=== PATIENT | female | born 1975 | race Hispanic/Latino ===

== ENCOUNTER 2018-04-26 10:57 | Emergency (ER) | payer SELFPAY ==
[2018-04-26 11:01] VITALS: BP 110/73; PULSE 70; RESP 14; TEMP 36.3; O2SAT 100
[2018-04-26 11:37] LABS: Amorphous Sediment Urine 1+; Bacteria Urine Few (2-10); Culture Indicated Urine Specimen Cultured; RBC Urine 0-1/HPF (0-5/HPF); Squamous Epithelial Cell Urine 5-10 /HPF; WBC Urine 1-5/HPF (0-5/HPF)
--- NOTE | 2018-04-26 12:03 | ED.FEMALEGU ---
HPI - Female Genitourinary <Kaelyn Perez PA-C - Last Filed: 04/26/18 21:18> General Chief complaint: Urogenital-Female Stated complaint: PAINFUL URINATION Time Seen by Provider: 04/26/18 12:05 Source: patient Mode of arrival: ambulatory Limitations: no limitations History of Present Illness HPI Narrative: This healthy 43-year-old complains of increased urinary frequency and urgency for about a week. She states that she has had some weight bumps in the vaginal area and this concerns her. She states that the skin can burn when she urinates and also itchy, but denies keyana dysuria. She denies any new vaginal discharge. She has not had intercourse for 3 months and does not think they are STD concerns. She denies any possibility of . She denies any fever. She denies any nausea, vomiting, or new back pain or other new concerns on systems review. Related Data Previous Rx's Medication Instructions Recorded nitrofurantoin monohyd/m-cryst 100 mg PO BID 5 Days #10 cap 04/26/18 [Macrobid] Allergies Allergy/AdvReac Type Severity Reaction Status Date / Time pork derived (porcine) Allergy Unknown Verified 04/26/18 11:03 [PORK DERIVED (PORCINE)] Review of Systems <Kaelyn Perez PA-C - Last Filed: 04/26/18 21:18> Review of Systems All systems reviewed & are unremarkable except as noted in HPI and below Exam <Kaelyn Perez PA-C - Last Filed: 04/26/18 21:18> Narrative Exam Narrative: GENERAL APPEARANCE: Patient sitting comfortably, in no distress. LUNGS: Clear to auscultation bilaterally. HEART: Rate and rhythm regular without murmur, normal S1 and S2, no S3 or S4. ABDOMEN: Soft, NT aside from minimal suprapubic tenderness, ND, +BS x 4 quadrants, no CVAT. : Normal external genitalia. There is 1 tiny white papule on the right labia minora, no vesicles or pustules. There is a modest amount of thin, opaque discharge, nonmalodorous. No uterine or adnexal tenderness, no CMT Initial Vital Signs Initial Vital Signs: Vital Signs Temperature 97.4 F L 04/26/18 11:01 Pulse Rate 70 04/26/18 11:01 Respiratory Rate 14 08/05/18 11:01 Blood Pressure 110/73 04/26/18 11:01 Pulse Oximetry 100 04/26/18 11:01 <Ander Mullen MD - Last Filed: 04/27/18 08:54> Initial Vital Signs Initial Vital Signs: Vital Signs Temperature 97.4 F L 04/26/18 11:01 Pulse Rate 70 04/26/18 11:01 Respiratory Rate 14 04/26/18 11:01 Blood Pressure 110/73 04/26/18 11:01 Pulse Oximetry 100 04/26/18 11:01 Course <Kaelyn Perez PA-C - Last Filed: 04/26/18 21:18> Orders Ordered: ED Orders 04/26/18 16:10 Genital Culture Stat CANDICE Prep Stat Wet Prep Tric BV Josette Stat Vital Signs - 8 hr 04/26/18 12:46 Pulse Rate 62 Respiratory Rate 15 Blood Pressure [Left Arm] 106/54 L Pulse Oximetry 100 <Ander Mullen MD - Last Filed: 04/27/18 08:54> Orders Ordered: ED Orders 04/26/18 16:10 Genital Culture Stat CANDICE Prep Stat Wet Prep Tric BV Josette Stat Vital Signs - 8 hr 04/26/18 12:46 Pulse Rate 62 Respiratory Rate 15 Blood Pressure [Left Arm] 106/54 L Pulse Oximetry 100 MDM - Female Genitourinary <Kaelyn Perez PA-C - Last Filed: 04/26/18 21:18> Lab Data Lab Results 04/26/18 Range/Units 11:13 Urine RBC 0-1/hpf (0-5/HPF) Urine WBC 1-5/hpf (0-5/HPF) Ur Squamous Epith Cells 5-10 /hpf H Amorphous Sediment 1+ Urine Bacteria Few (2-10) H (None) Ur Culture Indicated? Specimen cultured Micro UA Comment Not Reportable Spoke with lab as CANDICE and wet mount were not return. Specimen was not received. They are running general culture which is now marked as collected. <Ander Mullen MD - Last Filed: 04/27/18 08:54> Lab Data Lab Results 04/26/18 Range/Units 11:13 Urine RBC 0-1/hpf (0-5/HPF) Urine WBC 1-5/hpf (0-5/HPF) Ur Squamous Epith Cells 5-10 /hpf H Amorphous Sediment 1+ Urine Bacteria Few (2-10) H (None) Ur Culture Indicated? Specimen cultured Micro UA Comment Not Reportable Discharge Plan Departure Patient Disposition: Home, Self-Care Clinical Impression: Urinary tract infection Discharge Date/Time: 04/26/18 12:47 Interventions: ED Discharge Assessment Last Done: 04/26/18 12:46 Instructions: DI for Urinary Tract Infection (UTI) Activity Restrictions/Additional Instructions: Return or see your PCP if you have any worsening symptoms or new symptoms such as fever, nausea or vomiting. I have sent a prescription for antibiotic to your pharmacy for urinary infection, and we have sent off vaginal cultures. I do not see any sign of sexually transmitted disease or other vaginal infection on your exam today but we have taken culture sent off which should be back in 2-3 days. Please follow-up with your PCP next week to recheck whether any changes or further treatment are needed, and also scheduled for a Pap smear as you mention that you needed this as well. Prescriptions: New nitrofurantoin monohyd/m-cryst [Macrobid] 100 mg capsule 100 mg PO BID 5 Days Qty: 10 RF: 0 Referrals: [facility] [Other] <Ander Mullen MD - Last Filed: 04/27/18 08:54> Sign Out Provider Sign Out Attestation: The PA/LIVERY CAR DRIVER functioned independently for the care of this pt, I was available, but not asked to participate in care. I am unable to determine appropriateness of management without personally examining the pt.
--- NOTE | 2018-04-26 12:20 | PC.NURSE ---
Assumed care at this time. Stable. Provider to see. Wants STD check
--- NOTE | 2018-04-26 12:38 | PC.NURSE ---
Pelvic exam done with provider
[2018-04-26 12:46] VITALS: BP 106/54; PULSE 62; RESP 15; O2SAT 100
== END 2018-04-26 12:47 | disposition home or self-care (01) ==
PROVIDERS: Emergency Medicine; Emergency Provider Internal Medicine
DX: N39.0 Urinary tract infection, site not specified (principal)
CPT/HCPCS: 81003; 81015; 81025; 87070; 87077; 87086; 87205; 99283

== ENCOUNTER 2018-06-27 08:34 | Inpatient (IN) | payer MEDICAID, SELFPAY ==
[2018-06-27] VITALS (23 sets, daily range): BP systolic 92–117; BP diastolic 56–86; PULSE 56–91; RESP 11–21; TEMP 36.2–37; O2SAT 94–100; BMI 22.3
--- NOTE | 2018-06-27 | PATH_ITS ---
[facility] Accession Number: [id number] . 01 Material submitted: . GALLBLADDER AND CONTENTS . 02 Diagnosis: Gallbladder: Cholelithiasis with associated chronic cholecystitis. Benign reactive lymph node. MRV/07/01/2018 . 02 Electronically signed: . Rojas Plasencia MD, Pathologist NPI- [id number] . 01 Gross description: . Received in formalin, labeled gallbladder and contents, is an intact gallbladder (length-12.1 cm, diameter-3.3 cm) with morales-purple smooth shiny serosa and a patent cystic duct. One lymph node (1.2 x 0.8 x 0.7 cm) is identified. The lumen contains brown thick gelatinous material and multiple smooth hard calculi (7.3 x 2.5 x 2.0 cm) of various colors. The mucosa is morales-grant smooth and flat. The wall is up to 0.1 cm thick. No nodules, masses or lesions are identified. Section code: (A1) cystic duct resection margin and two serial sections from the body; (A2) two longitudinal sections from the fundus (A3) one trisected lymph node. ([id number]) /MRV . 02 Pathologist provided ICD-10: K80.64 . 02 CPT . 950114 Specimen Comment: A duplicate report has been generated due to demographic updates. Performed at: 01 [facility] [address] [place] [address], [place], [place] [id number] MD Jacinto aPng MD Phone: [phone] Performed at: [address] [facility] [address] [place], [place] [id number] MD Kody Beckford MD Phone: [phone]
[2018-06-27 09:05] LABS: Appearance Urine UA CLEAR; Bilirubin Urine UA NEGATIVE (NEGATIVE); Color Urine UA YELLOW; Glucose Urine UA NEGATIVE (Normal); Ketones Urine UA NEGATIVE (NEGATIVE); Leukocyte Esterase Urine UA NEGATIVE (NEGATIVE); Nitrite Urine UA Negative (Negative); Occult Blood Urine UA 1+ (Negative); Protein Urine UA NEGATIVE (Negative); Specific Gravity Urine UA 1.025 (1.000-1.035); Urobilinogen Urine UA 0.2 E.U./dL (0.2); pH Urine UA 5.5 (4.5-8.0)
--- NOTE | 2018-06-27 09:10 | DI.US.S_ITS ---
PROCEDURE: US ABDOMEN COMPLETE INDICATIONS: ruq pain TECHNIQUE: Real-time scanning was performed of the abdominal and retroperitoneal organs, with image documentation. COMPARISON: None. FINDINGS: Liver: Liver is normal in size and homogeneous in echotexture. Gallbladder: There are multiple intraluminal gallstones including a large stone in the gallbladder neck measuring up to 3.2 cm. The gallbladder wall appears normal in thickness although there is vascularity demonstrated on color Doppler interrogation. No definite pericholecystic fluid. The gallbladder contents appear isoechoic to the liver suggestive of biliary sludge. Sonographic Ward's sign was reportedly present. Biliary ducts: Intrahepatic bile ducts are non-dilated. Extrahepatic bile duct caliber measures up to 5 mm. Normal is 6-7 mm or less in diameter, or 10 mm or less post-cholecystectomy. Pancreas: Visualized portions of the pancreas are sonographically normal. Spleen: Spleen is normal in size and homogeneous in echotexture. Kidneys: Right kidney measures 11.6 cm long; left kidney measures 13.4 cm long. No hydronephrosis. Aorta: Visualized aorta is normal in caliber at less than 3 cm. Iliacs: Proximal common iliac arteries are not well seen due to bowel gas. IVC: Intrahepatic inferior vena cava is patent. Miscellaneous: No free abdominal fluid. IMPRESSION: 1. Cholelithiasis including a probable impacted large gallstone in the gallbladder neck. Slightly increased vascularity demonstrated in the gallbladder wall as well as reported sonographic Ward's sign. Although there is no definite gallbladder wall thickening or pericholecystic fluid, early cholecystitis cannot be excluded. Dictated by: Jacinto Kennedy M.D. on 06/27/2018 at 11:09 Approved by: Jacinto Kennedy M.D. on 06/27/2018 at 11:14
[2018-06-27 09:22] LABS: Pregnancy Test Urine Negative (Negative)
[2018-06-27 09:30] LABS: Add Manual Diff / Slide Review NO; Basophils Percent Auto 0.2 % (0-2); Eosinophils Percent Auto 1.7 % (2-4); Hematocrit 40.4 % (36-46); Hemoglobin 13.5 g/dL (12.0-16.0); Lymphocytes Percent Auto 12.9 % (25-40); Mean Corpuscular HGB Conc 33.4 % (30-36); Mean Corpuscular Volume 83.9 fL (80-100); Monocytes Percent Auto 6.4 % (3-14); Neutrophils Absolute Auto 7600 /uL (3000-5900); Neutrophils Percent Auto 78.8 % (50-75); Platelet Count 248 X10^3/uL (150-400); Red Blood Cell Count 4.82 X10^6/uL (4.0-5.2); Red Cell Distribution Width 14.3 % (11.6-14.8); White Blood Cell Count 9.6 X10^3/uL (4.5-11.0)
[2018-06-27 09:30] LABS: Bacteria Urine Moderate (10-30); Culture Indicated Urine Cult Not Indicated; RBC Urine 1-5/HPF (0-5/HPF); Renal Epithelial Cells Urine 0-1/HPF; Squamous Epithelial Cell Urine 1-5 /HPF; WBC Urine 0-1/HPF (0-5/HPF)
[2018-06-27] MEDS: SODIUM CHLORIDE 0.9% 1,000 ML 1000 ML IV (09:31)
[2018-06-27] MEDS: ONDANSETRON 4 MG/2 ML INJ IV (09:32)
[2018-06-27] MEDS: KETOROLAC 60 MG/2 ML VIAL 30 MG IV (09:32)
[2018-06-27 09:38] LABS: Alanine Aminotransferase 24 IU/L (9-52); Albumin 4.4 g/dL (3.5-5.0); Albumin Globulin Ratio 1.6 (1.0-2.8); Alkaline Phosphatase 45 U/L (38-126); Aspartate Aminotransferase 16 IU/L (14-36); Bilirubin Total 0.3 mg/dL (0.2-1.3); Blood Urea Nitrogen 14 mg/dL (7-17); Calcium 9.3 mg/dL (8.4-10.2); Carbon Dioxide 23 mmol/L (22-32); Chloride 106 mmol/L (98-107); Estimated Glomerular Filt Rate > 60.0 mL/min (>60); Globulin 2.8 g/dL (1.7-4.1); Glucose 105 mg/dL (70-100); HEMOLYSIS < 15 (0-50); Lipase 85 U/L (23-300); Potassium 4.3 mmol/L (3.4-5.1); Sodium 140 mmol/L (137-145); Total Protein 7.2 g/dL (6.3-8.2)
[2018-06-27] MEDS: AMPICILLIN/SULBACTAM 3 GM 3 GM in SODIUM CHLORIDE 0.9% 100 ML IV ×3 (11:14→22:30)
[2018-06-27] MEDS: LACTATED RINGERS 1,000 ML 42 ML IV (12:18)
--- NOTE | 2018-06-27 12:49 | SUR.OPER ---
Supine on padded OR bed, head on pillow, arms secured on padded arm boards at <90 degrees abduction, legs uncrossed, safety belt at thigh, tape over blanket over lower legs.
[2018-06-27] MEDS: BUPIVACAINE 0.5% W/ EPI (PF) VIAL 30 ML INJ (12:58)
[2018-06-27] MEDS: NEOMYCIN/POLYMYXIN/BACITRA UD OINT 1 EACH TOP (12:59)
--- NOTE | 2018-06-27 13:51 | HP_ITS ---
DATE OF SERVICE: 06/27/2018 HISTORY OF PRESENT ILLNESS: A 43-year-old white female patient who developed severe right upper quadrant abdominal pain in the middle of night, 2 o'clock this morning, at some nausea and vomiting, came to the emergency room where she has an ultrasound showing impacted stone in the neck of the gallbladder. Normal liver chemistries. There are a few other stones in the gallbladder but she has an impacted cystic duct stone. Normal white count. Again, normal chemistries. I've advised the patient that cholecystectomy is indicated, and we will proceed with an urgent laparoscopic cholecystectomy. PAST SURGICAL HISTORY: She has had section. No other surgery. Denies diabetes, heart disease, or hypertension. ALLERGIES: HAS NO KNOWN ALLERGIES. MEDICATIONS: Denies medications. REVIEW OF SYSTEMS: She denies exertional chest pain or unusual shortness of breath. GI as mentioned in HPI. is negative. COMPUTATIONAL THEORY SCIENTIST: She's had 2 C-sections. Neurologic: No strokes or seizures. PHYSICAL EXAMINATION VITAL SIGNS: She's afebrile, actually 99. HEENT: Ears, nose, and throat are normal. Skin and sclerae are clear with no sign of clinical jaundice. CHEST: Lungs are clear. HEART: Regular rhythm. No murmur. ABDOMEN: Exquisitely tender in the right upper quadrant. Positive Ward sign. I do not palpate a mass. She has a low well-healed Pfannenstiel incision from C- section. Otherwise her physical is unremarkable. PLAN: Laparoscopic cholecystectomy. She's been given intravenous Unasyn preoperatively. Emiliana Lea - Sulema/ doc#: [id number]/job#: [id number] dd: 06/27/2018 11:17:00 dt: 06/27/2018 13:39:00 DICTATING MD/COPIES TO: Dionte Goff MD COPIES MNE: CHRISTOPHER
--- NOTE | 2018-06-27 13:54 | ED_ITS ---
HPI - Abdominal Pain General Chief Complaint: Abdominal Pain Stated Complaint: ABDOMEN PAIN Time Seen by Provider: 06/27/18 09:05 Source: patient Mode of arrival: ambulatory Limitations: no limitations History of Present Illness HPI narrative: Patient is a 43-year-old female who presents with abdominal pain and nausea for the last 2 days. She said she ate a big meal last night woke up suddenly around 2:00 a.m. the pain was unbearable. It is mostly in her right upper quadrant but has been in her left lower quadrant as well. No fevers or chills. Never had anything like this before. MD complaint: abdominal pain Related Data Allergies Allergy/AdvReac Type Severity Reaction Status Date / Time pork derived (porcine) Allergy Unknown Verified 04/26/18 11:03 [PORK DERIVED (PORCINE)] Review of Systems Review of Systems All systems reviewed & are unremarkable except as noted in HPI and below Constitutional Denies chills, Denies fever(s), Denies lethargy and Denies weakness Cardiovascular Denies chest pain, Denies irregular heart rhythm, Denies lightheadedness, Denies palpitations, Denies dyspnea, Denies dyspnea on exertion and Denies orthopnea Respiratory Denies cough, Denies dyspnea, Denies dyspnea on exertion and Denies wheezing Gastrointestinal Gastrointestinal: Denies abdominal pain, Denies change in bowel habits, Denies diarrhea, Denies nausea and Denies vomiting Genitourinary Denies hematuria, Denies flank pain, Denies urinary incontinence and Denies urinary urgency Musculoskeletal Denies back pain, Denies muscle weakness, Denies numbness and Denies tingling Integumentary/Breasts Denies pruritus, Denies erythema, Denies rash and Denies wounds Neurologic Denies numbness, Denies tingling and Denies weakness Endocrine Denies palpitations Allergic/Immunologic Denies wheezing PFSH Family History Father Asthma Cancer Social History Smoking Status: Never smoker Exam Initial Vital Signs Initial Vital Signs: Vital Signs Temperature 98.6 F 06/27/18 08:57 Pulse Rate 65 06/27/18 08:57 Respiratory Rate 14 06/27/18 08:57 Blood Pressure 105/86 06/27/18 08:57 Pulse Oximetry 98 06/27/18 08:57 GENERAL: Young female alert oriented x3 appears in pain HEENT: Head atraumatic,EOMI, pupils reactive, face symmetric CARDIOVASCULAR: Regular rate and rhythm without murmurs, rubs or gallops. RESPIRATORY: Breath sounds equal bilaterally, no wheezes rales or rhonchi. ABDOMEN: Tender epigastric and right upper quadrant pain positive Ward sign, mild tenderness in left lower quadrant without guarding or rebound EXTREMITIES: Normal range of motion, no clubbing or edema. Neurovascularly intact NEUROLOGICAL: Alert and oriented x4.Normal gait and speech. Cranial nerves II through XII grossly intact. SKIN: Warm, dry, no laceration, no petechiae, no rashes or lesions. Course Orders Ordered: ED Orders 06/27/18 08:57 Test Urine Stat Urinalysis and Microscopic Stat 06/27/18 09:10 US abdomen complete Stat 06/27/18 09:20 Complete Blood Count AUTO DIFF Stat Comprehensive Metabolic Panel Stat Lipase Stat Fentanyl (Sublimaze) 50 mcg IV Q5MIN PRN PRN Reason: Pain, Severe (7-10) Fentanyl (Sublimaze) 50 mcg IV Q5MIN PRN PRN Reason: Pain, Moderate (4-6) Hydromorphone HCl (Dilaudid) 0.5 mg IV Q5MIN PRN PRN Reason: Pain, Moderate (4-6) Sodium Chloride (Normal Saline 0.9%) 1,000 mls @ 1,000 mls/hr IV CONT [facility] Last Infusion: 06/27/18 11:14 Dose: 0 mls/hr Admin: 06/27/18 09:31 Dose: 1,000 mls/hr Lactated Ringer's (Lactated Ringers) 1,000 mls @ 42 mls/hr IV CONT [facility] Last Admin: 06/27/18 12:18 Dose: 42 mls/hr Meperidine HCl (Demerol) 12.5 mg IV NOW PRN PRN Reason: Mild pain or shivering Metoclopramide HCl (Reglan) 10 mg IV NOW PRN PRN Reason: Nausea And Vomiting Discontinued Medications Bupivacaine HCl/Epinephrine Bitart (Sensorcaine 0.5% W/ Epi (Pf)) 30 ml INJ NOW ONE Stop: 06/27/18 12:58 Last Admin: 06/27/18 12:58 Dose: 30 ml Ampicillin Sodium/Sulbactam (Sodium 3 gm/ Sodium Chloride) 100 mls @ 100 mls/ hr IV NOW ONE Stop: 06/27/18 10:58 Last Infusion: 06/27/18 12:21 Dose: 0 mls/hr Infusion: 06/27/18 11:59 Dose: 100 mls/hr Admin: 06/27/18 11:14 Dose: 100 mls/hr Ketorolac Tromethamine (Toradol) 30 mg IV NOW ONE Stop: 06/27/18 09:11 Last Admin: 06/27/18 09:32 Dose: 30 mg Neomycin/Polymyxin/Bacitracin (Neosporin) 1 each TOP NOW ONE Stop: 06/27/18 12:58 Last Admin: 06/27/18 12:59 Dose: 2 each Ondansetron HCl (Zofran) 4 mg IV NOW ONE Stop: 06/27/18 09:11 Last Admin: 06/27/18 09:32 Dose: 4 mg Vital Signs - 8 hr 06/27/18 08:57 06/27/18 10:00 06/27/18 11:00 Temperature 98.6 F Pulse Rate 65 64 60 Respiratory Rate 14 Blood Pressure 105/86 Blood Pressure [Left Arm] 102/62 100/66 Pulse Oximetry 98 100 100 06/27/18 11:57 06/27/18 12:02 Temperature 97.5 F L Pulse Rate 65 65 Respiratory Rate 18 Blood Pressure 106/66 92/62 Blood Pressure [Left Arm] Pulse Oximetry 100 97 MDM - Abdominal Pain Lab Data Attestation: I reviewed the patient's lab results. Result diagrams: 06/27/18 09:20 06/27/18 09:20 Lab Results 06/27/18 06/27/18 06/27/18 Range/Units 08:57 08:57 09:20 WBC 9.6 (4.5-11.0) X10^3/uL RBC 4.82 (4.0-5.2) X10^6/uL Hgb 13.5 (12.0-16.0) g/dL Hct 40.4 (36-46) % MCV 83.9 (80-100) fL MCH 28.0 (26-34) PG MCHC 33.4 (30-36) % RDW 14.3 (11.6-14.8) % Plt Count 248 (150-400) X10^3/uL Neut % (Auto) 78.8 H (50-75) % Lymph % (Auto) 12.9 L (25-40) % [place] % (Auto) 6.4 (3-14) % Eos % (Auto) 1.7 L (2-4) % Baso % (Auto) 0.2 (0-2) % Neut # (Auto) 7600 H (3569-3895) /uL Sodium (137-145) mmol/L Potassium (3.4-5.1) mmol/L Chloride (98-107) mmol/L Carbon Dioxide (22-32) mmol/L BUN (7-17) mg/dL Creatinine (0.52-1.04) mg/dL Estimated GFR (>60) mL/min BUN/Creatinine Ratio (6-22) Glucose (70-100) mg/dL Calcium (8.4-10.2) mg/dL Total Bilirubin (0.2-1.3) mg/dL AST (14-36) IU/L ALT (9-52) IU/L Alkaline Phosphatase (38-126) U/L Total Protein (6.3-8.2) g/dL Albumin (3.5-5.0) g/dL Globulin (1.7-4.1) g/dL Albumin/Globulin Ratio (1.0-2.8) Lipase (23-300) U/L Urine Color Yellow Urine Appearance Clear Urine pH 5.5 (4.5-8.0) Ur Specific [place] 1.025 (1.000-1.035) Urine Protein Negative (Negative) Urine Glucose (UA) Negative (Normal) g/dL Urine Ketones Negative (NEGATIVE) Urine Occult Blood 1+ H (Negative) Urine Nitrate Negative (Negative) Urine Bilirubin Negative (NEGATIVE) Urine Urobilinogen 0.2 (0.2) E.U./dL Ur Leukocyte Esterase Negative (NEGATIVE) Urine RBC 1-5/hpf (0-5/HPF) Urine WBC 0-1/hpf (0-5/HPF) Ur Squamous Epith Cells 1-5 /hpf Ur Renal Epithelial Cell 0-1/hpf Urine Bacteria Moderate (10-30) H (None) Ur Culture Indicated? Cult not indicated Urine Test Negative (Negative) 06/27/18 Range/Units 09:20 WBC (4.5-11.0) X10^3/uL RBC (4.0-5.2) X10^6/uL Hgb (12.0-16.0) g/dL Hct (36-46) % MCV (80-100) fL MCH (26-34) PG MCHC (30-36) % RDW (11.6-14.8) % Plt Count (150-400) X10^3/uL Neut % (Auto) (50-75) % Lymph % (Auto) (25-40) % [place] % (Auto) (3-14) % Eos % (Auto) (2-4) % Baso % (Auto) (0-2) % Neut # (Auto) (0231-2936) /uL Sodium 140 (137-145) mmol/L Potassium 4.3 (3.4-5.1) mmol/L Chloride 106 (98-107) mmol/L Carbon Dioxide 23 (22-32) mmol/L BUN 14 (7-17) mg/dL Creatinine 0.50 L (0.52-1.04) mg/dL Estimated GFR > 60.0 (>60) mL/min BUN/Creatinine Ratio 28.0 H (6-22) Glucose 105 H (70-100) mg/dL Calcium 9.3 (8.4-10.2) mg/dL Total Bilirubin 0.3 (0.2-1.3) mg/dL AST 16 (14-36) IU/L ALT 24 (9-52) IU/L Alkaline Phosphatase 45 (38-126) U/L Total Protein 7.2 (6.3-8.2) g/dL Albumin 4.4 (3.5-5.0) g/dL Globulin 2.8 (1.7-4.1) g/dL Albumin/Globulin Ratio 1.6 (1.0-2.8) Lipase 85 (23-300) U/L Urine Color Urine Appearance Urine pH (4.5-8.0) Ur Specific [place] (1.000-1.035) Urine Protein (Negative) Urine Glucose (UA) (Normal) g/dL Urine Ketones (NEGATIVE) Urine Occult Blood (Negative) Urine Nitrate (Negative) Urine Bilirubin (NEGATIVE) Urine Urobilinogen (0.2) E.U./dL Ur Leukocyte Esterase (NEGATIVE) Urine RBC (0-5/HPF) Urine WBC (0-5/HPF) Ur Squamous Epith Cells Ur Renal Epithelial Cell Urine Bacteria (None) Ur Culture Indicated? Urine Test (Negative) Point of care testing: Urine Dip Bedside Urine Glucose Negative Bedside Urine Bilirubin - Negative Bedside Urine Ketone - Negative Urine Specific [place] 1.030 Bedside Urine Occult Blood +/- Bedside Urine pH 6.0 Bedside Urine Protein - Negative Bedside Urine Urobilinogen - Negative Bedside Urine Nitrite - Negative Bedside Urine Leukocytes + 70 Esterase Imaging Data US - abdomen: Radiologist's impression: PROCEDURE: US ABDOMEN COMPLETE INDICATIONS: ruq pain TECHNIQUE: Real-time scanning was performed of the abdominal and retroperitoneal organs, with image documentation. COMPARISON: None. FINDINGS: Liver: Liver is normal in size and homogeneous in echotexture. Gallbladder: There are multiple intraluminal gallstones including a large stone in the gallbladder neck measuring up to 3.2 cm. The gallbladder wall appears normal in thickness although there is vascularity demonstrated on color Doppler interrogation. No definite pericholecystic fluid. The gallbladder contents appear isoechoic to the liver suggestive of biliary sludge. Sonographic Ward's sign was reportedly present. Biliary ducts: Intrahepatic bile ducts are non-dilated. Extrahepatic bile duct caliber measures up to 5 mm. Normal is 6-7 mm or less in diameter, or 10 mm or less post-cholecystectomy. Pancreas: Visualized portions of the pancreas are sonographically normal. Spleen: Spleen is normal in size and homogeneous in echotexture. Kidneys: Right kidney measures 11.6 cm long; left kidney measures 13.4 cm long. No hydronephrosis. Aorta: Visualized aorta is normal in caliber at less than 3 cm. Iliacs: Proximal common iliac arteries are not well seen due to bowel gas. IVC: Intrahepatic inferior vena cava is patent. Miscellaneous: No free abdominal fluid. IMPRESSION: 1. Cholelithiasis including a probable impacted large gallstone in the gallbladder neck. Slightly increased vascularity demonstrated in the gallbladder wall as well as reported sonographic Ward's sign. Although there is no definite gallbladder wall thickening or pericholecystic fluid, early cholecystitis cannot be excluded. Dictated by: Jacinto Kennedy M.D. on 06/27/2018 at 11:09 MDM Narrative Medical decision making narrative: The patient's pain is better after Toradol. no leukocytosis, elevated liver enzymes for elevated bilirubin. Dr. Blum in the ED to evaluate patient. Patient is going to the operating room and will be admitted. Discharge Plan Departure Patient Disposition: Admitted As Inpatient Clinical Impression: Cholelithiasis Discharge Date/Time: 06/27/18 12:00 Interventions: ED Discharge Assessment Last Done: 06/27/18 11:58 Admit Date/Time: 06/27/18 11:02 Admit Provider: Dionte oGff
[2018-06-27] MEDS: LORazepam 2 MG/ML SYRINGE 0.5 MG IV (14:10)
[2018-06-27] MEDS: MIDAZOLAM 2 MG/2 ML VIAL 0.5 MG IV (14:15)
--- NOTE | 2018-06-27 14:32 | SUR.PHASEI ---
Report called to SAFIA Wade
[2018-06-27] MEDS: HYDROMORPHONE 2 MG INJ 0.5 MG IV ×4 (14:40→15:01)
--- NOTE | 2018-06-27 14:44 | SUR.PHASEI ---
c/o sore throat, ice provided.
--- NOTE | 2018-06-27 14:50 | SUR.PHASEI ---
Pt c/o lower, mid chest pain, Dr. Leung notified. VS stable. No new orders. Pt medicated with Dilaudid.
--- NOTE | 2018-06-27 15:05 | SUR.PHASEI ---
Pt c/o chest pressure, Dr. Leung notified, Ekg ordered and done. EKG NSR. Dr Leung shown EKG. Medicated for pain.
--- NOTE | 2018-06-27 15:23 | SUR.PHASEI ---
Report to Raisa Thomas RN. VS stable. Upper mid drsg had scant bloody drainage, other three drsgs cdi. Abd soft. IV saline locked. Belongings bag in room.
--- NOTE | 2018-06-27 16:13 | PC.ADMIT ---
[address] [place] [address] [address] Admission Note: The patient,Emiliana Fitzgerald,43 y/o, was given written information regarding hospital policies, unit procedures and contact persons. Patient's smoking status: Never smoker. Vital Signs - 8 hr 06/27/18 08:57 06/27/18 10:00 06/27/18 11:00 Temperature 98.6 F Pulse Rate 65 64 60 Respiratory Rate 14 Blood Pressure 105/86 Blood Pressure [Left Arm] 102/62 100/66 Pulse Oximetry 98 100 100 06/27/18 11:57 06/27/18 12:02 06/27/18 13:41 Temperature 97.5 F L 97.8 F Pulse Rate 65 65 56 L Respiratory Rate 18 19 Blood Pressure 106/66 92/62 101/62 Blood Pressure [Left Arm] Pulse Oximetry 100 97 99 06/27/18 13:45 06/27/18 13:51 06/27/18 13:59 Temperature Pulse Rate 68 60 91 H Respiratory Rate 17 11 L 21 Blood Pressure 111/69 107/67 111/80 Blood Pressure [Left Arm] Pulse Oximetry 100 100 100 06/27/18 14:12 06/27/18 14:17 06/27/18 14:32 Temperature Pulse Rate 72 75 67 Respiratory Rate 13 16 12 Blood Pressure 106/73 110/61 107/74 Blood Pressure [Left Arm] Pulse Oximetry 100 100 100 06/27/18 14:34 06/27/18 14:42 06/27/18 14:56 Temperature 98.3 F Pulse Rate 75 70 Respiratory Rate 11 L 13 Blood Pressure 108/70 107/67 Blood Pressure [Left Arm] Pulse Oximetry 100 100 Patient arrived on floor from PACU drowsy. Her daughter is with her and is her tow motor mechanic and will stay the night. She is complaining of abdominal pain, stabbing in the center of her abdomen and radiating to tall over the abdomen. Her chest is clear, no bowel tones. Denies nausea. Given ice chips without problems. She has 4 dressings on th e right side of her abdomen, one on top and three uderneath the first one. the top dressing is the largest and had some dried blood on it, the others are clean and dry. She moves all extremities and her parachute officer are equal and strong. She has expressed concern about when she will be able to go back to work. 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
[2018-06-27] MEDS: DEXTROSE 5%-0.45% NS 1,000 ML 100 ML IV (16:20)
[2018-06-27] MEDS: OXYCODONE/ACETAMINOPHEN 5/325 TABLET 1 TAB PO ×2 (16:27→23:45)
[2018-06-27] MEDS: KETOROLAC 30 MG/ML VIAL IV (20:07)
[2018-06-28] MEDS: MORPHINE 2 MG/ML INJ IV (01:45)
--- NOTE | 2018-06-28 01:51 | OP_ITS ---
DATE OF SERVICE: 06/27/2018 PREOP DIAGNOSIS: Acute cholecystitis/cholelithiasis with impacted cystic duct stone. POSTOP DIAGNOSIS: Acute cholecystitis/cholelithiasis with impacted cystic duct stone with severe acute cholecystitis. PROCEDURE: Laparoscopic cholecystectomy. SURGEON: Dionte Goff MD ANESTHESIA: General endotracheal. DESCRIPTION OF PROCEDURE: The patient was given a general endotracheal anesthetic and prepped and draped in a sterile fashion with exposure of the upper abdomen. She was properly identified during surgical pause. The laparoscopic cholecystectomy proceeded, starting with port placement to the right of the umbilicus. A 5-mm incision was made. A 5-mm port was inserted into the peritoneal cavity under direct vision. A pneumoperitoneum was safely established. Three additional right upper quadrant ports were placed under direct vision, two 5-mm and one 07/02. The patient's gallbladder was massively distended, acutely inflamed, edematous, thickened, overlying serosa, injected. In order to grasp and elevate the gallbladder, I had to aspirate the contents, which were thick bile and stones. Once I aspirated the gallbladder, I could elevate it towards the patient's right shoulder. Following that, the cholecystoduodenal ligament was dissected down to critical view of Calot triangle, clearly showing cystic duct, cystic artery, and Calot node. The cystic duct was closed with multiple clips, divided, leaving several with the patient. There was no bile leak. There was an impacted stone at the neck of the gallbladder at the origin of the cystic duct. This was a huge stone, 2-1/2 cm across. The cystic artery was closed with multiple clips, divided, leaving several with the patient. There was no bleeding. The gallbladder was then elevated and dissected away from the liver bed with meticulous hemostasis using the Bovie electrocautery. The operative site was irrigated with 2 L of sterile saline and aspirated dry. There was no bleeding or bile leak. Removing the specimen required enlarging the epigastric port considerably from 10 mm to about 3 cm so that I could finally get that big stone out with the gallbladder using an Endo Bag. Because of enlarging that incision, I closed that fascia with running 0-Vicryl. There was good hemostasis on wound closure. In all cases, the skin was stapled. Sterile dressing was applied. She tolerated this procedure very well. Emiliana Lea - RA/fn/erick doc#: [id number]/job#: [id number] dd: 06/27/2018 13:53:00 dt: 06/28/2018 01:18:00 DICTATING MD/COPIES TO: Dionte Goff MD COPIES MNE: CHRISTOPHER
[2018-06-28] MEDS: DEXTROSE 5%-0.45% NS 1,000 ML 100 ML IV ×2 (04:41→17:06)
[2018-06-28] MEDS: KETOROLAC 30 MG/ML VIAL IV ×3 (04:44→21:57)
[2018-06-28] MEDS: AMPICILLIN/SULBACTAM 3 GM 3 GM in SODIUM CHLORIDE 0.9% 100 ML IV ×4 (04:45→21:57)
[2018-06-28 04:49] VITALS: BP 97/53; PULSE 54; RESP 15; TEMP 36.6; O2SAT 99
[2018-06-28 08:00] VITALS: BP 97/54; PULSE 66; RESP 16; TEMP 36.3; O2SAT 97
--- NOTE | 2018-06-28 08:47 | CM.DANOTE ---
Discharge Planning/Care Management DCP: assessment: case received, EMR reviewed and met briefly with pt and her daughter: 0800. Pt is found lying in dark in bed, cool cloth to forehead. Appears uncomfortable. Her daughter is rooming in with her. Introduced self and role. Pt is a 43 year old female who lives in [place]. She admitted to care of surgeon: Dr Goff yesterday, was taken to surgery for urgent lap bandar. Post op dx: large impacted stone/acute cholecystitis. Payer: pt confirms she has no insurance. [facility] are notified to assist her with financial options. P: will follow as POC unfolds to assist with d/c issues and options. CM Discharge Assessment Start: 06/28/18 08:42 Freq: Status: Active Protocol: Document 06/28/18 08:42 ITV (Rec: 06/28/18 08:46 ITV [id number]) Discharge Planning Assessment Advance Directives? No History Provided By Patient Family Member Medical Record Prior Living Arrangements Apartment/Condo Household Members family Comment pt has a sister who lives in [place]: Ericacarmelita Fitzgerald [phone] Pt's daughter is at bedside: curtis Weaver [phone] Independent with ADL's Yes Is patient alert and oriented? Yes Comment pt's primary language is Hungarian. She does understand [place]. Her daughter is fluent in [place] Barriers to Discharge No Comment pt confirms she has no insurance. 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 [facility] is updated with request to assist her with financial options Whiteboard Updated in Patient Room with Yes name and ext. # of Security Control Room Officer Review Status In Process Next Review Type Continued Stay Review
[2018-06-28] MEDS: OXYCODONE/ACETAMINOPHEN 5/325 TABLET 1 TAB PO ×3 (08:52→17:12)
[2018-06-28 12:00] VITALS: BP 97/54; PULSE 58; RESP 16; TEMP 36.7; O2SAT 99
--- NOTE | 2018-06-28 13:39 | PN_ITS ---
DATE OF SERVICE: 06/28/2018, Friday morning. SUBJECTIVE: Patient is 1 day post laparoscopic cholecystectomy for severe acute cholecystitis, impacted cystic duct stone. Subjectively, she is complaining of a fair amount of trocar site pain and tenderness. I had to really enlarge the epigastric port just to retrieve the specimen because of the huge stone involved, so I suspect that's what is causing her discomfort. She is tolerating p.o. liquids. She is not ambulating much. OBJECTIVE: Her skin and sclerae are clear; no sign of jaundice. She's afebrile. I did not order any labs today. IMPRESSION: She's recovering satisfactorily from acute cholecystitis, laparoscopic cholecystectomy. PLAN: She remains on an IV antibiotic and is tolerating liquid. She's ambulating with help. I suspect she will be able to go home tomorrow or the next day but she does not want to go home today. Emiliana Lea - [place] doc#: [id number]/job#: [id number] dd: 06/28/2018 11:33:00 dt: 06/28/2018 12:40:00 DICTATING /COPIES TO: Dionte Goff MD COPIES MNE: CHRISTOPHER
[2018-06-28 15:50] VITALS: BP 101/57; PULSE 54; RESP 16; TEMP 36.8; O2SAT 99
[2018-06-28] MEDS: LORazepam 2 MG/ML SYRINGE 1 MG IV (19:35)
[2018-06-28 19:45] VITALS: BP 95/59; PULSE 56; RESP 14; TEMP 36.3; O2SAT 99
[2018-06-28 23:00] VITALS: O2SAT 99
[2018-06-29] VITALS (8 sets, daily range): BP systolic 89–111; BP diastolic 49–69; PULSE 58–78; RESP 12–20; TEMP 36.5–36.9; O2SAT 97–100
[2018-06-29] MEDS: AMPICILLIN/SULBACTAM 3 GM 3 GM in SODIUM CHLORIDE 0.9% 100 ML IV ×4 (05:09→22:10)
[2018-06-29] MEDS: KETOROLAC 30 MG/ML VIAL IV ×3 (05:10→20:06)
[2018-06-29] MEDS: DEXTROSE 5%-0.45% NS 1,000 ML 100 ML IV ×2 (06:43→22:10)
--- NOTE | 2018-06-29 08:52 | PC.NURSE ---
discussed with pt her blurry vision vision, states happened for the first time yesterday and only happens when she is standing. Checked orthostatic BP, BP and HR increased with sitting/standing. Pt was also in a lot of pain with standing, gurarding and grimacing. Pt denied having any changes in vision with standing this time. Will continue to monitor, awaiting call back from .
[2018-06-29] MEDS: HYDROMORPHONE 1 MG INJ IV (10:25)
--- NOTE | 2018-06-29 14:33 | PM.PN.1 ---
Subjective Date Patient Seen: 06/29/18 Time Patient Seen: 14:33 Interval history: Very pleasant 43-year-old lady who is postop day 2 after lap choly. She had some significant pain this morning but that seems to have improved. She is eating only very little. She described her pain this morning as an 8 or 9/10 but she was significantly improved after a dose of Dilaudid. She very much wants to eat her food from home but admits that it is very greasy food. Exam Vital Signs (past 8 hours): - 06/29/18 07:35 06/29/18 08:41 06/29/18 11:40 Temperature 97.9 F 98.1 F Pulse Rate 60 58 L Pulse Rate [Orthostatic Lying] 67 Pulse Rate [Orthostatic Sitting] 70 Pulse Rate [Orthostatic Standing] 78 Respiratory Rate 16 12 Blood Pressure 92/58 L 95/52 L Blood Pressure [Orthostatic Lying] 91/56 L Blood Pressure [Orthostatic Sitting] 107/69 Blood Pressure [Orthostatic Standing] 111/49 L Pulse Oximetry 97 100 Oxygen Delivery Method Room Air Narrative Exam Narrative: Lungs: Clear to auscultation bilaterally Heart: Regular rate and rhythm Abdomen: Soft, appropriately tender to palpation, active bowel sounds. Dressings removed and incisions are clean dry and intact. No erythema or drainage at any of the sites. Extremities: No edema Objective Labs Result Diagrams: 06/27/18 09:20 06/27/18 09:20 Assessment & Plan Plan: Assessment/Plan Narrative: Very pleasant 43-year-old lady who is postop day 2 after laparoscopic cholecystectomy. I have admonished her to take her pain medicine when she begins to feel uncomfortable and not wait until her pain is completely out of control. I have increased her dose of Percocet from 1 tablet to 2. She will continue walking in the halls. Recheck labs in the morning. She could conceivably be discharged tomorrow if she improves over the evening. Quality VTE Deep Vein Thrombosis/Pulmonary Embolism Present on Admission: No
[2018-06-29] MEDS: OXYCODONE/ACETAMINOPHEN 5/325 TABLET 2 TAB PO ×2 (14:57→20:01)
[2018-06-30 01:35] VITALS: O2SAT 97
[2018-06-30] MEDS: OXYCODONE/ACETAMINOPHEN 5/325 TABLET 2 TAB PO ×3 (02:59→18:00)
[2018-06-30 04:13] VITALS: BP 97/52; PULSE 66; RESP 16; TEMP 36.8; O2SAT 98
[2018-06-30] MEDS: AMPICILLIN/SULBACTAM 3 GM 3 GM in SODIUM CHLORIDE 0.9% 100 ML IV ×3 (04:44→16:55)
[2018-06-30] MEDS: KETOROLAC 30 MG/ML VIAL IV ×2 (04:46→16:54)
[2018-06-30 08:00] VITALS: BP 97/59; PULSE 64; RESP 16; TEMP 36.8; O2SAT 99
[2018-06-30] MEDS: DEXTROSE 5%-0.45% NS 1,000 ML 100 ML IV (09:54)
[2018-06-30 11:45] VITALS: BP 107/58; PULSE 57; RESP 16; TEMP 36.9; O2SAT 99
--- NOTE | 2018-06-30 14:35 | CM.DPC ---
DCP Cont: Left a message with Ramona, admissions counselor, regarding patient's status of having no insurance. An email was sent to her as well. Patient has not yet seen surgeon yet today. Unknown if patient will be discharged today. Plan is for her to go home when stable. P: DCP continue to assess. Patient's goal is to return home. Ginger Nur RN/Floor Nurse
[2018-06-30 15:54] VITALS: BP 103/55; PULSE 81; RESP 16; TEMP 37; O2SAT 100
--- NOTE | 2018-06-30 16:51 | PM.DS.1 ---
History of Present Illness Date Patient Seen: 06/30/18 Time Patient Seen: 16:51 Chief complaint: ABDOMEN PAIN Narrative: Pleasant 43-year-old lady admitted with acute cholecystitis. Discharge Providers Date of admission: 06/27/18 11:02 Discharge provider: Neeta Pickard MD Discharge Date: 06/30/18 Summary Discharge Diagnosis: Acute cholecystitis and cholelithiasis Hospital Course: The patient was taken to the operating room on the day of admission and underwent an uneventful cholecystectomy. On the 1st postoperative day pain was bit of an issue because she was reluctant to take any medication. By the 2nd postoperative day she was feeling better, eating better, and the pain was much better controlled. She is discharged to her home in the care of her family. She will follow up with me in my office in 2 weeks Status at Discharge Functional status at discharge: independent ambulation Overall status at discharge: patient is progressing back to baseline Time Spent with Patient Less than 30 minutes Exam Vital Signs (past 8 hours): - 06/30/18 11:45 06/30/18 15:54 Temperature 98.5 F 98.6 F Pulse Rate 57 L 81 Respiratory Rate 16 16 Blood Pressure 107/58 L 103/55 L Pulse Oximetry 99 100 Oxygen Delivery Method Room Air Objective Labs Result Diagrams: 06/27/18 09:20 06/27/18 09:20 Discharge Plan Discharge Plan Patient Disposition: Home Discharge Med Rec/Prescriptions Prescriptions: New oxycodone-acetaminophen 5-325 mg Tablet 2 tab PO Q4HR PRN (Reason: Pain, Moderate (4-6)) Qty: 30 RF: 0 Follow up/Referrals: Neeta Pickard MD [Physician] - 2 Weeks Provider Discharge Instructions Diet: Diet as Tolerated Skin/Wound/Dressing Care Report to your healthcare provider any signs of infection, such as:: chills, fever, night sweats and increased pain Visit Report/Discharge Packet Instructions: DI for Heart Failure, DI for Cholecystectomy, DI for Laparoscopy Stand Alone Forms: Surgery Discharge Visit Report Forms: Stroke Signs & Symptoms Print Language: Citizen Of [place] Discharge Data Attending Provider: Dionte Goff Admit Date/Time: 06/27/18 11:02 Discharges patient from system. Discharge Date/Time: 06/30/18 19:40 Quality VTE Deep Vein Thrombosis/Pulmonary Embolism Present on Admission: No
--- NOTE | 2018-06-30 22:31 | PC.NURSE ---
Addendum entered by Ivette Martin R.N. 06/30/18 22:35: VSS, 4 lap sites well approximated with katharine, one with 6 katharine all other 3 with 2 katharine each, APRIL, CDI. Original Note: 1919- Pt discharging, daughter here to drive home, all belongings given to pt, including Rx for percocet. IV removed without issues. pain medication of percocet 2 tabs given to pt aprox 1745 for pain 03/01. All documentation given to pt, ADULT EDUCATION INSTRUCTOR wheelchair pt to exit.
== END 2018-06-30 19:40 | disposition home or self-care (01) | DRG 419 ==
LOC: ED 11:00 → AC 11:03
PROVIDERS: Admitting Provider Surgery; Emergency Provider Emergency Medicine; Visit Provider Surgery
PROC: 0FT44ZZ Resection of Gallbladder, Percutaneous Endoscopic Approach (ICD-10-PCS; CPT 47562; principal; 2018-06-27 12:10)
DX: K80.00 Calculus of gallbladder with acute cholecystitis without obstruction (principal)
CPT/HCPCS: 36591; 47562; 76700; 80053; 81001; 81003; 81025; 83690; 85025; 88304; 93005; 96361; 96365; 96375; 99221; 99283; 99284; J0295; J1100; J1170; J1885; J2060; J2250; J2270; J2405; J2704

== ENCOUNTER → 2019-02-12 14:42 | Outpatient (CLI) | payer SELFPAY ==
[2018-06-27 15:43] VITALS: BMI 22.3
--- NOTE | 2019-02-12 | DI.MG.S_ITS ---
BILATERAL DIGITAL DIAGNOSTIC MAMMOGRAM 3D/2D: 02/12/2019 CLINICAL: Baseline exam. Family history of breast cancer. Right nipple lesion. No prior exams were available for comparison. The tissue of both breasts is extremely dense, which lowers the sensitivity of mammography. No significant masses, calcifications, or other findings are seen in either breast. IMPRESSION: INCOMPLETE: NEEDS ADDITIONAL IMAGING EVALUATION There is no abnormality seen in the right breast to correspond with the area of clinical concern and nipple abnormality, however, ultrasound is recommended. This exam was interpreted at Station ID: [id number]. NOTE: For mammograms, a report in lay terms will be sent to the patient. Approximately 15% of breast malignancies will not be visualized mammographically. In the management of a palpable breast mass, a negative mammogram must not discourage biopsy of a clinically suspicious lesion. SUMMARY: The recommended ultrasound is scheduled to immediately follow this examination. Electronically Signed By: Gagandeep Cole M.D. aty/:02/12/2019 15:46:27 ACR BI-RADS Category 0: Incomplete [id number]
--- NOTE | 2019-02-12 | DI.US.S_ITS ---
ULTRASOUND OF RIGHT BREAST: 02/12/2019 CLINICAL: Palpable right breast lump. Comparison is made to exam dated: 02/12/2019 [facility]. Real-time ultrasound of the right breast was performed. Snyder scale images of the real-time examination were reviewed. No abnormalities were seen sonographically in the right breast. IMPRESSION: NEGATIVE There is no sonographic evidence of malignancy. There is no abnormality seen in the right breast or nipple to correspond with the area of clinical concern and nipple abnormality. A 1 year screening mammogram is recommended. Recommend clinical follow up for persistent symptomatology. This exam was interpreted at Station ID: [id number]. Electronically Signed By: Gagandeep Coel M.D. aty/:02/16/2019 09:42:12 letter sent: Normal Exam Ultrasound BI-RADS: 1 Negative
== END ==
PROVIDERS: Visit Provider Family Medicine
DX: R92.8 Other abnormal and inconclusive findings on diagnostic imaging of breast (principal); N63.10 Unspecified lump in the right breast, unspecified quadrant; Z80.3 Family history of malignant neoplasm of breast
CPT/HCPCS: 76642; 77066; G0279

== ENCOUNTER 2020-11-24 07:42 | Emergency (ER) | payer SELFPAY ==
[2018-06-27 15:43] VITALS: BMI 22.3
[2020-11-24] VITALS (13 sets, daily range): BP systolic 98–124; BP diastolic 55–72; PULSE 59–74; RESP 14–19; TEMP 36.7; O2SAT 99–100
[2020-11-24] MEDS: SODIUM CHLORIDE 0.9% 1,000 ML 1000 ML IV (08:02)
[2020-11-24 08:05] LABS: Add Manual Diff / Slide Review NO; Basophils Absolute Auto 0 /uL (0-100); Basophils Percent Auto 0.7 % (0-2); Eosinophils Absolute Auto 300 /uL (0-450); Eosinophils Percent Auto 6.2 % (2-4); Hematocrit 38.4 % (36-46); Hemoglobin 12.9 g/dL (12.0-16.0); Lymphocytes Absolute Auto 1500 /uL (1100-4500); Lymphocytes Percent Auto 29.5 % (25-40); Mean Corpuscular HGB Conc 33.5 % (30-36); Mean Corpuscular Hemoglobin 27.8 PG (26-34); Mean Corpuscular Volume 83.1 fL (80-100); Monocytes Absolute Auto 500 /uL (0-900); Monocytes Percent Auto 8.9 % (3-14); Neutrophils Absolute Auto 2800 /uL (1500-7000); Neutrophils Percent Auto 54.7 % (50-75); Platelet Count 247 X10^3/uL (150-400); Red Blood Cell Count 4.62 X10^6/uL (4.0-5.2); Red Cell Distribution Width 14.1 % (11.6-14.8); White Blood Cell Count 5.1 X10^3/uL (4.5-11.0)
[2020-11-24 08:15] LABS: BUN Creatinine Ratio 34.2 (6-22); Blood Urea Nitrogen 13 mg/dL (7-17); Calcium 9.2 mg/dL (8.4-10.2); Carbon Dioxide 23 mmol/L (22-32); Chloride 105 mmol/L (98-107); Estimated Glomerular Filt Rate > 60.0 mL/min (>60); Ethanol (ETOH) < 10 mg/dL; Glucose 105 mg/dL (70-100); HEMOLYSIS 23 (0-50); Potassium 4.2 mmol/L (3.4-5.1); Sodium 134 mmol/L (137-145)
--- NOTE | 2020-11-24 08:15 | ED_ITS ---
HPI - General Adult General Chief complaint: Dizziness Stated complaint: dizzy spells,blood pressure low Time Seen by Provider: 11/24/20 07:53 Source: patient Mode of arrival: Ambulatory Limitations: no limitations History of Present Illness HPI narrative: 45-year-old female who was sent over from the walk-in clinic for evaluation of dizzy spells low blood pressure. Patient states that last evening she was at her normal state health at approximately 0800 hours when she stood up from watching TV and had a sudden onset of a room spinning sensation. She had to sit back down. She had some nausea the time but did not throw up. No chest pain palpitations headache ringing in her ears. Patient's boyfriend is with her in the room and he stated that it lasted just a few minutes and then completely resolved. Patient states that it occurred a couple times at night. It occurred when she turned her head and also when she stood up to go to the bathroom. Same situation is before where he was a room spinning sensation with some nausea but no other associated symptoms. All lasting just a few minutes or less. It occurred again this morning. She went to the walk-in clinic. Apparently had blood pressure checked and her systolic was in the 80s so they sent her to the emergency department for evaluation. Related Data Home Medications Medication Instructions Recorded Confirmed multivitamin,[id number] 1 tab PO DAILY 11/24/20 11/24/20 [Complete Multivitamin] Previous Rx's Medication Instructions Recorded meclizine 25 mg PO TID PRN #20 tab 11/24/20 ondansetron 4 mg PO Q6H PRN #14 tab 11/24/20 Allergies Allergy/AdvReac Type Severity Reaction Status Date / Time pork derived (porcine) Allergy Unknown Verified 11/24/20 07:49 [PORK DERIVED (PORCINE)] Review of Systems Constitutional Constitutional: Denies fatigue, Denies fever(s) and Denies headache(s) Eyes Eyes: Denies change in vision ENT Ears, Nose, Mouth, and Throat: Reports vertigo, Denies otalgia, Denies headache(s), Denies sinus pain, Denies sinus pressure and Denies sore throat Cardiovascular Cardiovascular: Denies chest pain and Denies dyspnea Respiratory Respiratory: Denies dyspnea Gastrointestinal Gastrointestinal: Denies abdominal pain, Denies constipation, Denies diarrhea, Reports nausea and Denies vomiting Genitourinary Genitourinary: Denies dysuria Genitourinary: Denies dysuria Musculoskeletal Musculoskeletal: Denies arthralgias and Denies myalgias Integumentary/Breasts Skin/Breast: Denies rash Neurologic Neurologic: Denies behavioral changes, Reports vertigo and Denies headache(s) Psychiatric Psychiatric: Denies behavioral changes Endocrine Endocrine: Denies fatigue Hematologic/Lymphatic On Anticoagulants: No Allergic/Immunologic Allergic/Immunologic: Denies urticaria Patient History Medical History (Updated 11/24/20 @ 10:39 by Tono Mondragon DO) Healthy adult Surgical History Status post delivery Status post tubal ligation Family History Father Asthma Cancer Social History household members: family and children occupational status: employed Smoking Status: Never smoker alcohol intake: never substance use type: does not use Smoking Status: Never smoker alcohol intake frequency: holidays/special occasions only Substance Use Type: does not use Exam Initial Vital Signs Initial Vital Signs: Vital Signs Temperature 98.0 F 11/24/20 07:44 Pulse Rate 65 11/24/20 07:44 Respiratory Rate 14 11/24/20 07:44 Blood Pressure 124/70 11/24/20 07:44 Pulse Oximetry 100 11/24/20 07:44 Const General: cooperative and comfortable Limitations: mental status not altered HENMT Head: normal to inspection and normocephalic Resp Effort & Inspection: normal respiratory effort Auscultation: clear to auscultation bilaterally Cardio Rate: regular rate Rhythm: regular rhythm GI Inspection: non-distended Palpation: soft Skin Lesions: no lesions Rashes: no rashes Neuro General: patient alert, patient awake and patient oriented x3 Cranial Nerves: CN's II-XI intact bilaterally Cognition: normal cognition Speech: speech normal Gait: normal gait Motor: muscle tone normal throughout Sensory Exam: no sensory deficits noted Other: Patient with a strongly positive Mustapha-Hallpike maneuver to the right. Extrem General: normal to inspection and capillary refill normal Psych Appearance: grossly normal and well kempt Course Orders Ordered: ED Orders 11/24/20 07:54 EKG-12 Lead Stat 11/24/20 08:00 Basic Metabolic Panel Stat Complete Blood Count AUTO DIFF Stat Ethanol (ETOH) Stat Discontinued Medications Diazepam (Diazepam 5 Mg Tablet) 5 mg PO NOW ONE Stop: 11/24/20 08:16 Last Admin: 11/24/20 08:19 Dose: 5 mg Documented by: RIVAS Sodium Chloride (Normal Saline 0.9%) 1,000 mls @ 1,000 mls/hr IV BOLUS ONE Stop: 11/24/20 08:52 Last Infusion: 11/24/20 09:10 Dose: 0 mls/hr Documented by: Admin: 11/24/20 08:02 Dose: 1,000 mls/hr Documented by: RIVAS Vital Signs Vital signs: Vital Signs - 8 hr 11/24/20 07:44 11/24/20 07:48 11/24/20 07:49 Temperature 98.0 F Pulse Rate 65 72 Pulse Rate [Orthostatic Lying] Pulse Rate [Orthostatic Sitting] Pulse Rate [Orthostatic Standing] Respiratory Rate 14 Blood Pressure 124/70 124/70 111/67 Blood Pressure [Orthostatic Lying] Blood Pressure [Orthostatic Sitting] Blood Pressure [Orthostatic Standing] Pulse Oximetry 100 100 11/24/20 07:50 11/24/20 07:57 11/24/20 08:00 Temperature Pulse Rate 74 66 Pulse Rate [Orthostatic Lying] 64 Pulse Rate [Orthostatic Sitting] 68 Pulse Rate [Orthostatic Standing] 74 Respiratory Rate Blood Pressure 109/72 107/72 Blood Pressure [Orthostatic Lying] 124/70 Blood Pressure [Orthostatic Sitting] 111/67 Blood Pressure [Orthostatic Standing] 109/72 Pulse Oximetry 99 99 11/24/20 08:30 11/24/20 09:00 Temperature Pulse Rate 66 62 Pulse Rate [Orthostatic Lying] Pulse Rate [Orthostatic Sitting] Pulse Rate [Orthostatic Standing] Respiratory Rate 16 18 Blood Pressure 110/68 98/62 Blood Pressure [Orthostatic Lying] Blood Pressure [Orthostatic Sitting] Blood Pressure [Orthostatic Standing] Pulse Oximetry 100 99 Medical Decision Making Lab Data Lab results reviewed: Yes I reviewed the patient's lab results. Result diagrams: 11/24/20 08:00 11/24/20 08:00 Labs: Lab Results 11/24/20 11/24/20 Range/Units 08:00 08:00 WBC 5.1 (4.5-11.0) X10^3/uL RBC 4.62 (4.0-5.2) X10^6/uL Hgb 12.9 (12.0-16.0) g/dL Hct 38.4 (36-46) % MCV 83.1 (80-100) fL MCH 27.8 (26-34) PG MCHC 33.5 (30-36) % RDW 14.1 (11.6-14.8) % Plt Count 247 (150-400) X10^3/uL Neut % (Auto) 54.7 (50-75) % Lymph % (Auto) 29.5 (25-40) % [place] % (Auto) 8.9 (3-14) % Eos % (Auto) 6.2 H (2-4) % Baso % (Auto) 0.7 (0-2) % Neut # (Auto) 2800 (2126-9763) /uL Lymph # (Auto) 1500 (7550-9210) /uL [place] # (Auto) 500 (0-900) /uL Eos # (Auto) 300 (0-450) /uL Baso # (Auto) 0 (0-100) /uL Sodium 134 L (137-145) mmol/L Potassium 4.2 (3.4-5.1) mmol/L Chloride 105 (98-107) mmol/L Carbon Dioxide 23 (22-32) mmol/L BUN 13 (7-17) mg/dL Creatinine 0.38 L (0.52-1.04) mg/dL Estimated GFR > 60.0 (>60) mL/min BUN/Creatinine Ratio 34.2 H (6-22) Glucose 105 H (70-100) mg/dL Calcium 9.2 (8.4-10.2) mg/dL Ethyl Alcohol < 10 ( - 10) mg/dL Point of Care Testing Test Results Negative Urine Dip Bedside Urine Glucose Negative Bedside Urine Bilirubin - Negative Bedside Urine Ketone - Negative Urine Specific [place] 1.015 Bedside Urine Occult Blood - Negative Bedside Urine pH 6.0 Bedside Urine Protein - Negative Bedside Urine Urobilinogen - Negative Bedside Urine Nitrite - Negative Bedside Urine Leukocytes - Negative Esterase Point of care testing: Point of Care Testing Test Results Negative Urine Dip Bedside Urine Glucose Negative Bedside Urine Bilirubin - Negative Bedside Urine Ketone - Negative Urine Specific [place] 1.015 Bedside Urine Occult Blood - Negative Bedside Urine pH 6.0 Bedside Urine Protein - Negative Bedside Urine Urobilinogen - Negative Bedside Urine Nitrite - Negative Bedside Urine Leukocytes - Negative Esterase ECG Data Attestation: I personally reviewed and interpreted this ECG as follows: Prior ECG tracings: not available for review Interpretation: Sinus rhythm Ventricular rate is 61 Normal axis Normal QRS Normal QTC No ST T wave changes MDM Narrative Medical decision making narrative: Patient had a very positive [place]-Hallpike maneuver to the right. Her symptoms are fatigable. She reported a vast improvement of symptoms after the Valium. Her workup here in the emergency department is reassuring. I have a high suspicion this is a peripheral vertigo. She has not hypotensive. Will send home with meclizine and instructions for the Mustapha-Hallpike maneuver. Patient and boyfriend were given return precautions. They expressed understanding and agreement. Discharge Plan Departure Patient Disposition: Home Clinical Impression: Vertigo Instructions: DI for Vertigo Activity Restrictions/Additional Instructions: Recommend that you take the medications as directed. They were electronically transmitted to the pharmacy of your choice. I also recommend that you look up the Mustapha-Hallpike maneuver. This can be found on YouTube. Recommend that you follow the instructions. You can do this multiple times a day if needed. Contact your primary provider for follow-up. Return to the emergency department for any new or worsening symptoms Prescriptions: New ondansetron 4 mg tablet,disintegrating 4 mg PO Q6H PRN (Reason: nausea and vomiting) Qty: 14 RF: 0 meclizine 25 mg tablet 25 mg PO TID PRN (Reason: dizziness) Qty: 20 RF: 0 No Action Complete Multivitamin Tablet 1 tab PO DAILY RF: 0
[2020-11-24] MEDS: diazePAM 5 MG TABLET PO (08:19)
== END 2020-11-24 11:15 | disposition home or self-care (01) ==
PROVIDERS: Emergency Provider Emergency Medicine
DX: R42 Dizziness and giddiness (principal); R11.0 Nausea
CPT/HCPCS: 36415; 80048; 80320; 81003; 81025; 85025; 93005; 96360; 99283; 99284

== ENCOUNTER → 2022-08-04 09:37 | Outpatient (CLI) | payer SELFPAY ==
[2018-06-27 15:43] VITALS: BMI 22.3
[2022-08-04 10:23] LABS: Influenza A - CEPHEID Flu A NEGATIVE (NEGATIVE); Influenza B - CEPHEID Flu B NEGATIVE (NEGATIVE); Respiratory Syncytial Virus Negative (Negative)
[2022-08-04 10:25] LABS: COVID-19 CEPHEID 4-PLEX PCR Negative (Negative)
== END ==
PROVIDERS: Visit Provider Physician Assistant
DX: R05.9 Cough, unspecified (principal)
CPT/HCPCS: 0241U

== ENCOUNTER 2024-01-10 18:08 | Emergency (ER) | payer OTHER, SELFPAY ==
[2018-06-27 15:43] VITALS: BMI 22.3
[2024-01-10] VITALS (8 sets, daily range): BP systolic 93–117; BP diastolic 51–71; PULSE 62–70; RESP 16–18; TEMP 36.7; O2SAT 97–98; BMI 24.0
[2024-01-10] MEDS: SODIUM CHLORIDE 0.9% 1,000 ML 1000 ML IV (18:42)
[2024-01-10] MEDS: METOCLOPRAMIDE 10 MG/2 ML INJ IV (18:43)
--- NOTE | 2024-01-10 19:14 | ED.HA ---
HPI - Headache General Chief Complaint: Headache Stated Complaint: migraine, dizzy, nausea not eating Time Seen by Provider: 01/10/24 18:23 Source: patient, RN notes reviewed and old records reviewed Mode of arrival: Ambulatory Limitations: no limitations History of Present Illness HPI Narrative: 48-year-old female with history of recurrent headaches. Patient presents with complaint of headache started yesterday she describes it as sort of gradual onset mild becoming increasingly more painful. She has taken some oral hxcq-rws-ganuhgh medications yesterday and today without any improvement. She denies any fevers. No trauma. She has had photophobia, she has had nausea but no vomiting. Denies any numbness tingling or weakness no facial droop, no vision changes, no chest pain or shortness of breath. No other GI or urinary symptoms other than some mild constipation. She does note she had her colonoscopy earlier this week and only had coffee to drink yesterday. Patient states she has had headaches similar to this in the past. She also notes her mother has migraines as well as her son. Patient states no daily prescription medications. No recent surgeries. No known drug allergies. No tobacco, alcohol or recreational drugs. She is recently established with primary care at [facility]. She is accompanied by her family. Related Data Home Medications Medication Instructions Recorded Confirmed multivitamin,yc-naji-[id number] 1 tab PO DAILY 11/24/20 11/24/20 (Complete Multivitamin tablet) Allergies Allergy/AdvReac Type Severity Reaction Status Date / Time pork derived (porcine) Allergy Unknown Verified 08/04/22 09:14 [PORK DERIVED (PORCINE)] Review of Systems Review of Systems ROS Unobtainable: All systems reviewed & are unremarkable except as noted in HPI and below Patient History Medical History (Updated 01/10/24 @ 19:29 by Romina Thrasher DO) Healthy adult Surgical History Status post delivery Status post tubal ligation Family History Father Asthma Cancer Social History household members: family and children occupational status: employed Smoking Status: Never smoker alcohol intake: never substance use type: does not use Smoking Status: Never smoker alcohol intake frequency: holidays/special occasions only Substance Use Type: does not use Exam Narrative Exam Narrative: GEN: well nourished, well appearing female, alert and oriented x 3, patient appears to be in nxki-ns-pruvkgsl distress. HEENT: Atraumatic, pupils are equal round reactive to light, extraocular movements are intact, nares are clear, there is no conjunctival pallor. Throat is clear without any exudates, erythema, tonsillar enlargement or uvular deviation HEART: Regular rate and rhythm without murmur, clicks, rubs. Pulses are equal in upper and lower extremities LUNGS:Lungs clear to auscultation, no wheezes, rales, crackles, chest moves symmetrically ABD:bowel sounds normal, soft, non-tender, no guarding, rebound, rigidity, no masses noted, no hepatosplenomegaly :No CVA tenderness MSCL: Non-tender, no muscle atrophy, muscles strength 5/5 upper and lower extremities, full range of motion, normal gait NEURO:CN 2-12 intact, sensation normal, finger nose finger test normal, heel buchanan test normal. SKIN: No rash, erythema or other skin changes. Initial Vital Signs Initial Vital Signs: Vital Signs Temperature 98.1 F 01/10/24 18:24 Pulse Rate 68 01/10/24 18:24 Respiratory Rate 18 01/10/24 18:24 Blood Pressure 117/57 L 01/10/24 18:24 Pulse Oximetry 97 01/10/24 18:24 Oxygen Delivery Method Room Air 01/10/24 18:24 Course Orders Ordered: Discontinued Medications Sodium Chloride (Normal Saline 0.9%) 1,000 mls @ 1,000 mls/hr IV BOLUS ONE Stop: 01/10/24 19:22 Last Infusion: 01/10/24 19:45 Dose: Infused Documented By: Admin: 01/10/24 18:42 Dose: 1,000 mls/hr Documented By: PAOLO Ketorolac Tromethamine (Ketorolac 30 Mg/Ml Vial) 15 mg IV NOW ONE Stop: 01/10/24 19:27 Last Admin: 01/10/24 19:40 Dose: 15 mg Documented By: JACK Metoclopramide HCl (Metoclopramide 10 Mg/2 Ml Inj) 10 mg IV NOW ONE Stop: 01/10/24 18:24 Last Admin: 01/10/24 18:43 Dose: 10 mg Documented By: PAOLO Vital Signs Vital signs: Vital Signs - 8 hr 01/10/24 18:24 01/10/24 18:33 01/10/24 18:34 Temperature 98.1 F Pulse Rate 68 63 62 Respiratory Rate 18 Blood Pressure 117/57 L Pulse Oximetry 97 98 98 Oxygen Delivery Method Room Air Room Air 01/10/24 18:34 01/10/24 19:00 01/10/24 19:00 Temperature Pulse Rate 70 Respiratory Rate Blood Pressure 110/71 93/52 L Pulse Oximetry 97 Oxygen Delivery Method 01/10/24 19:30 01/10/24 19:30 01/10/24 20:00 Temperature Pulse Rate 69 63 Respiratory Rate 16 Blood Pressure 108/63 Pulse Oximetry 98 97 Oxygen Delivery Method Room Air 01/10/24 20:00 01/10/24 20:30 01/10/24 20:30 Temperature Pulse Rate 64 Respiratory Rate Blood Pressure 102/58 L 100/56 L Pulse Oximetry 97 Oxygen Delivery Method 01/10/24 20:58 01/10/24 20:58 Temperature Pulse Rate 63 Respiratory Rate 16 Blood Pressure 95/51 L Pulse Oximetry 98 Oxygen Delivery Method Room Air MDM - Headache MDM Narrative Medical decision making narrative: 48-year-old female with reported history of migraine-type headaches that have been longstanding. Patient had worsening recently did recently have colonoscopy with likely some dehydration component and had coffee but no other liquids yesterday. She is afebrile with otherwise appropriate vitals. Has some photophobia, no acute neurologic changes or other red flag symptoms. Patient received fluids, Reglan and Toradol on recheck and is feeling much improved. She states headaches are fairly infrequent and we discussed if they are debilitating or frequency bothers her enough that she could follow up with primary care for additional workup and treatment. Discharge Plan Departure Patient Disposition: Home Clinical Impression: Headache Activity Restrictions/Additional Instructions: Please follow up with primary care for recheck if your symptoms are persisting. If you have frequent severe headaches it would be worthwhile to follow-up, sometimes there are medications that can be helpful to prevent migraines. You can take Tylenol up to a 1000 mg every 6 hours and/or ibuprofen up to 600 mg every 6 hours as needed. Please return for fevers, rapidly worsening symptoms, sudden vision changes, numbness tingling or weakness, persistent vomiting, passing out or other new or concerning changes. Prescriptions: No Action Complete Multivitamin Tablet 1 tab PO DAILY Referrals: Miscellaneous,Doctor, MD [Primary Care Provider] - Stand Alone Forms: Patient Portal/API
[2024-01-10] MEDS: KETOROLAC 30 MG/ML VIAL 15 MG IV (19:40)
== END 2024-01-10 21:03 | disposition home or self-care (01) ==
PROVIDERS: Emergency Provider Emergency Medicine
DX: R51.9 Headache, unspecified (principal)
CPT/HCPCS: 36415; 96374; 96375; 99283; 99284; J1885; J2765